=== PATIENT | male | born 1975 | race Caucasian/White ===

== ENCOUNTER 2024-04-24 10:43 | Emergency (ER) | payer SELFPAY ==
[2024-04-24 10:56] VITALS: BMI 26.6
[2024-04-24] MEDS: ONDANSETRON 4 MG/2 ML VIAL IVPB ONE (11:52)
[2024-04-24] MEDS: FAMOTIDINE 20 MG/50 ML IVPB 20 MG/50 ML MG IVPB ONE (11:54)
[2024-04-24] MEDS: diazePAM CARPU-JECT 10 MG/2 ML DISP.SYRIN IVPUSH ONE (11:54)
[2024-04-24] MEDS ORDERED: diazePAM CARPU-JECT 10 MG/2 ML DISP.SYRIN ONE (11:54)
[2024-04-24] MEDS ORDERED: ONDANSETRON 4 MG/2 ML VIAL ONE (11:55)
[2024-04-24] MEDS ORDERED: FAMOTIDINE 20 MG/50 ML IVPB 20 MG/50 ML MG IVPB ONE (11:55)
[2024-04-24 12:05] LABS: BASO % 0.6 % (0-2.0); EOS % 0.2 % (0-4.5); HEMATOCRIT 42.9 % (35.4-49); HEMOGLOBIN 14.6 GM/dL (11.7-16.9); LYMPH % 19.6 % (8-40); MCH 31.6 pg (25.7-33.7); MEAN CELL VOLUME 92.9 fl (80-96); MEAN PLT VOLUME 7.9 fl (7.5-11.1); MONO % 8.8 % (3.8-10.2); NEUT % 70.8 % (42.8-82.8); PLATELET COUNT 136 10^3/uL (134-434); RBC 4.61 M/mm3 (4.00-5.60); RDW 14.1 % (11.9-15.9); WHITE BLOOD COUNT 5.6 K/mm3 (4.0-10.0)
[2024-04-24] MEDS: SODIUM CHLORIDE 0.9% 500 ML INFUS.BAG IV ONE (12:08)
[2024-04-24 12:21] LABS: POTASSIUM 3.8 mmol/L (3.5-5.1)
[2024-04-24 12:23] LABS: ALBUMIN 3.5 g/dl (3.4-5.0); CALCIUM 8.2 mg/dL (8.5-10.1)
[2024-04-24 12:24] LABS: BLOOD UREA NITROGEN 5.4 mg/dL (7-18)
[2024-04-24 12:27] LABS: CREATININE 0.8 mg/dL (0.55-1.3)
[2024-04-24 12:28] LABS: BILIRUBIN,TOTAL 0.6 mg/dL (0.2-1); TOT PROT 7.6 g/dl (6.4-8.2)
[2024-04-24 15:17] VITALS: BP 145/86; PULSE 80; RESP 17; TEMP 98
== END 2024-04-24 15:15 | disposition home or self-care (01) ==
LOC: JER 10:43
PROC: 3E033GC Introduction of Other Therapeutic Substance into Peripheral Vein, Percutaneous Approach (ICD-10-PCS; principal; 2024-04-24)
PROC: 3E033GC Introduction of Other Therapeutic Substance into Peripheral Vein, Percutaneous Approach (ICD-10-PCS; 2024-04-24)
PROC: 3E033GC Introduction of Other Therapeutic Substance into Peripheral Vein, Percutaneous Approach (ICD-10-PCS; 2024-04-24)
DX: F10.90 Alcohol use, unspecified, uncomplicated (principal); R07.2 Precordial pain; R11.2 Nausea with vomiting, unspecified
CPT/HCPCS: 36415; 71046-TC-FY; 80053; 83690; 83735; 84484; 85025; 93005; 93010; 99285-25